=== PATIENT | male | born 1955 | race Caucasian/White ===

== ENCOUNTER 2019-03-27 15:09 | Emergency (ER) | payer OTHER ==
--- OUTSIDE RECORDS SUMMARY | 2019-03-27 15:11 | XMS REPORT | Encounter Summary ---
:1955 Author Care Team Providers Name Role Phone Julio César Frazier MD Primary Care Provider [phone] Reason for Visit Follow Up Visit Instructions 1. Chronic pain chronic pain: care instructions pain management referral 2. Lumbar radiculopathy gabapentin 800 mg tablet 3. Noncompliance with medication regimen 4. Noncompliance with therapeutic regimen Discussion Note: None recorded. Plan of Care Reminders Provider Appointments Return to on or around Julio César Ricks Office 01/27/2019 MD Freddie Lab None recorded. Referral Pain 01/27/2019 Hans Medeiros Management Referral Procedures None recorded. Surgeries None recorded. Imaging None recorded. Medications Name Start Date acetaminophen 300 mg-codeine 60 mg tablet Take 1 tablet twice a day by oral route as needed for 30 days. gabapentin 800 mg tablet Take 1 tablet 3 times a day by oral route for 30 days. gentamicin 0.3 % eye drops meloxicam 15 mg tablet Take 1 tablet every day by oral route for 30 days. nifedipine ER 60 mg tablet,extended release Take 1 tablet every day by oral route as directed. Proventil HFA 90 mcg/actuation aerosol inhaler Inhale 2 puffs by inhalation route as needed for 16 days. Medications Administered None recorded. Vitals Height Weight BMI Blood Pressure 62 in 127 lbs 16 oz 23.4 kg/m2 175/104 mm[Hg] Results Lab Results None recorded. Allergies Code Code System Name Reaction Severity Status Onset NKDA Problems No Known Problems Procedures Date Name Performed by Operation on Hip Joint Information not available Appendectomy Information not available Vaccine List None recorded. Social History Tobacco Smoking Status Heavy Tobacco Smoker (1 PPD) Past Encounters 01/27/2019 Chronic Pain; Lumbar Radiculopathy; Noncompliance with Medication Regimen; Noncompliance with Therapeutic Regimen Julio César Frazier MD: [address] [place] [address] [address], [place] [address], Ph. History of Present Illness Note: Patient here for follow-up on chronic pain. He states he needs refills on his Tylenol No. 4. He had called back in June to get refills on Tylenol No. 4. He was referred to pain management in May and he never went. He was prescribed meloxicam and trazodone and he never took the medications. He states that he did not want to take the medications. He never followed up as scheduled. He was asked to get x-rays of his back and lab work and he never got it done. He continues to smoke. Despite my best efforts the patient has not been wanting to quit. The patient states that he has had chronic back pain for over 20 years and wants to have his Tylenol No. 4 refilled. I told him that I am not a chronic pain management doctor and that he has to see pain management and that I will not be refilling his Tylenol No. 4 anymore. Review of Systems Comprehensive Adult Problem ROS Reported By: Patient Constitutional: Constitutional: good appetite, no fever, happy/content, normal activity level Eyes: Eyes: no eye pain, no blurry vision, no eye redness, no eye itchiness ENMT: ENMT: no ear pain, no ear discharge, no hearing loss, no mouth lesions Cardiovascular: Cardiovascular: no chest pain, normal heart rate Respiratory: Respiratory: no chest tightness, no pain with respiration, normal respiration, cough, wheezing Gastrointestinal: GI: no difficulty swallowing, no abdominal pain, no nausea, no vomiting, no diarrhea, no constipation, no blood in stools Genitourinary: : no discharge, no blood in urine, no pain with urination, no increase in frequency of urination, no voiding urgency, no testicular pain Musculoskeletal: Musculoskeletal: no soft tissue swelling, no joint swelling, no myalgia, limited motion Skin: Skin: no pain, no itchiness, no flaking, no skin lesions Neurological symptoms: Neuro: no numbness, no weakness, no tingling, no burning, no shooting pain, no headache, no loss of consciousness Psychiatric: Psych: no depression, no anxiety, no insomnia Endocrine: Endocrine: normal drinking, no temperature intolerance Allergic/Immunologic: Allergy/Immunologic: no sneezing, no runny nose Physical Exam General Adult Exam - Male Reported By: Patient Constitutional: General Appearance: healthy-appearing, well-nourished, well-developed. Level of Distress: NAD. Ambulation: limited ambulation Psychiatric: Insight: good judgement. Mental Status: active and alert, normal mood, normal affect. Orientation: to time, to place, to person Head: Head: normocephalic, atraumatic Eyes: Pupils: PERRLA. EOM: EOMI. Sclerae: non-icteric ENMT: Oropharynx: moist mucous membranes Neck: Neck: supple, trachea midline, FROM. Thyroid: no enlargement, non-tender, no nodules Lungs: Percussion: no dullness, flatness, or hyperresonance. Auscultation: breath sounds normal, good air movement Cardiovascular: Heart Auscultation: RRR, normal S1, normal S2, no murmurs, no rubs, no gallops. Neck vessels: no carotid bruits. Pulses including femoral / pedal: normal throughout Abdomen: Inspection and Palpation: soft, non-distended, no tenderness, no guarding Musculoskeletal:: Motor Strength and Tone: normal, normal tone. Joints, Bones , and Muscles: normal movement of all extremities. Extremities: no cyanosis, no edema, no varicosities Neurologic: Gait and Station: normal gait, normal station. Cranial Nerves: grossly intact. Sensation: grossly intact. Reflexes: DTRs 2+ bilaterally throughout Skin: Inspection and palpation: no rash, no lesions Back: Thoracolumbar Appearance: normal curvature
--- OUTSIDE RECORDS SUMMARY | 2019-03-27 15:11 | XMS REPORT | Encounter Summary ---
:1955 Author Care Team Providers Name Role Phone Julio César Frazier MD Primary Care Provider [phone] Reason for Visit new patient Instructions 1. Chronic low back pain pain management referral Mobic 15 mg tablet Tylenol-Codeine #4 300 mg-60 mg tablet XR, lumbar spine 2. Lumbar radiculopathy gabapentin 800 mg tablet 3. Essential hypertension CMP, serum or plasma CBC w/ auto diff TSH, serum or plasma lipid panel, serum 4. Chronic obstructive lung disease 5. Tobacco dependence syndrome deciding about using medicines to quit smoking stopping smoking: care instructions Discussion Note: None recorded. Plan of Care Reminders Provider Appointments Follow up Julio César Ricks 06/16/2018 MD Freddie 10:30AM Lab CMP, Serum or [facility] Plasma 06/02/2018 [facility] (Lab) CBC W/ Auto [facility] Diff 06/02/2018 [facility] (Lab) TSH, Serum or [facility] Plasma 06/02/2018 [facility] (Lab) Lipid Panel, [facility] Serum 06/02/2018 [facility] (Lab) Referral Pain Hans Medeiros MD Management Referral 06/02/2018 Procedures None recorded. Surgeries None recorded. Imaging XR, Lumbar [facility] Spine 06/02/2018 [facility] Medications Name Start Date gabapentin 800 mg tablet Take 1 tablet 3 times a day by oral route for 30 days. Mobic 15 mg tablet Take 1 tablet every day by oral route for 30 days. nifedipine ER 60 mg tablet,extended release Proventil HFA 90 mcg/actuation aerosol inhaler trazodone 50 mg tablet Tylenol-Codeine #4 300 mg-60 mg tablet Take 1 tablet twice a day by oral route as needed for 30 days. Medications Administered None recorded. Vitals Height Weight BMI Blood Pressure 62 in 139 lbs 9 oz 25.5 kg/m2 188/104 mm[Hg] Lab Results None recorded. Allergies Code Code System Name Reaction Severity Status Onset NKDA Problems None recorded. Procedures Date Name Performed by Operation on Hip Joint Information not available Appendectomy Information not available 06/02/2018 XR, Lumbar Spine [facility] [address] [place] [id number] ([address]) Vaccine List None recorded. Social History Smoking Status Current Every Day Smoker Past Encounters 06/02/2018 Chronic Low Back Pain; Lumbar Radiculopathy; Essential Hypertension; Chronic Obstructive Lung Disease; Tobacco Dependence Syndrome Julio César Frazier MD: [address] [place] [address], [address], [place] [address], Ph. History of Present Illness Back Pain Reported By: Patient HPI: Location: pain radiating to the buttocks, pain radiating to the legs, pain radiating to the foot, pain radiating to the ankle; Left sided pain, mid lower back. Quality: sharp. Severity: severe (8-10), interference with sleep, interference with work. Duration: chronic; Started to have back pain aproximately 3 years ago. 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 He is disabled from back problems. Has never seen pain managment. Onset/Timing: recurrent episode. Context: overuse, prior back problems. Alleviating Factors: rest, relieved by changing position. Aggravating Factors: movement/positioning, twisting, flexing back, extending back. Associated Symptoms: no fever, no incontinence Notes: pain worse with prolonged standing or sitting. Note: Hypertension: Patient has a history of hypertension and he has not had a follow-up in a while. He is due for labs. Tries to limits all intake. Denies any chest pain. No paroxysmal dyspnea or orthopnea. No anginal symptoms.

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 Denies syncope hemoptysis or abnormal weight loss. He is not on bronchodilator therapy at this time. He has never had oxygen evaluation. Denies a history of sleep apnea. He is not sure if he is up-to-date on his pneumonia shot. Offered a flu shot today and he refused.

Tobacco dependence syndrome: Patient has been smoking all his life. We discussed the importance of tobacco cessation to decrease the chances of him having cardiovascular disease. He states that at this time he is not interested in quitting.
Review of Systems Comprehensive Adult Problem ROS [...]
[2019-03-27] MEDS ORDERED: LIDOCAINE 1% MPF 30 ML VIAL ONE (16:45)
[2019-03-27] MEDS ORDERED: HYDROCODONE/APAP 10/325 TAB ONE (16:45)
--- NOTE | 2019-03-27 17:04 | ER ---
Nurse's Notes [facility] Name: Regino Hartman Age: 64 yrs Sex: Male : 1955 Arrival Date: 03/27/2019 Time: 15:11 Bed 13 Private MD: Diagnosis: Cutaneous abscess of right upper limb;Cutaneous abscess of right lower limb;Cellulitis of left lower limb Presentation: 03/27 15:11 Presenting complaint: Patient states: abscess on right elbow and bilateral knees x 4 sv days. Transition of care: patient was not received from another setting of care. Onset of symptoms was March 23, 2019. Risk Assessment: Do you want to hurt yourself or someone else? Patient reports no desire to harm self or others. Care prior to arrival: None. 15:11 Method Of Arrival: Ambulatory sv 15:11 Acuity: RODERICK 3 sv 15:16 Initial Sepsis Screen: Does the patient meet any 2 criteria? HR > 90 bpm. No. Patient's sv initial sepsis screen is negative. Does the patient have a suspected source of infection? Yes: Skin breakdown/wound. Historical: - Allergies: 15:14 No Known Allergies; sv - PMHx: 15:14 Hypertension; sv - PSHx: 15:14 Appendectomy; left femur; sv - Immunization history:: Flu vaccine is not up to date. - Social history:: Smoking status: Patient uses tobacco products, smokes one pack cigarettes per day. - Ebola Screening: : No symptoms or risks identified at this time. Screenin:15 Abuse screen: Denies threats or abuse. Nutritional screening: No deficits noted. rb1 Tuberculosis screening: No symptoms or risk factors identified. Fall Risk None identified. Assessment: 16:15 General: Appears in no apparent distress. Neuro: Level of Consciousness is awake, rb1 alert, obeys commands, Oriented to person, place, time, situation. Cardiovascular: Capillary refill < 3 seconds is brisk in bilateral fingers. Respiratory: Airway is patent Respiratory effort is even, unlabored, Respiratory pattern is regular, symmetrical. GI: No signs and/or symptoms were reported involving the gastrointestinal system. : No signs and/or symptoms were reported regarding the genitourinary system. Musculoskeletal: Range of motion: intact in all extremities. 16:15 Pain: Complains of pain in left leg and right arm Pain currently is 8 out of 10 on a rb1 pain scale. 17:20 Reassessment: Applied non-adherent gauze, 4 x 4 's gauze, and kerlix to the left elbow rb1 and the right lower thigh. Pt. tolerated well. 17:30 Reassessment: Patient appears in no apparent distress at this time. Patient and/or rb1 family updated on plan of care and expected duration. Pain level reassessed. Patient is alert/active/playful, equal unlabored respirations, skin warm/dry/pink. Vital Signs: 15:14 BP 160 / 95; Pulse 100; Resp 20; Pulse Ox 100% ; Weight 63.5 kg; Height 5 ft. 2 in. sv (157.48 cm); Pain 9/10; 16:10 BP 160 / 94; Pulse 95; Resp 19; Pulse Ox 99% on R/A; Pain 8/10; rb1 17:10 BP 158 / 91; Pulse 93; Resp 19; Pulse Ox 99% on R/A; Pain 5/10; rb1 15:14 Body Mass Index 25.61 (63.50 kg, 157.48 cm) sv ED Course: 15:11 Patient arrived in ED. sv 15:11 Arm band placed on. sv 15:13 Triage completed. sv 16:07 Jason Khan PA is PHCP. jr8 16:07 Pierre Bustamante MD is Attending Physician. jr8 16:15 Patient has correct armband on for positive identification. Bed in low position. Call rb1 light in reach. Side rails up X 1. Pulse ox on. NIBP on. 16:45 Beatrice Shen, NATANAEL is Primary Nurse. rb1 17:02 Jose Bobby MD is Referral Physician. jr8 17:34 No provider procedures requiring assistance completed. Patient did not have IV access rb1 during this emergency room visit. 17:36 Primary Nurse role handed off by Beatrice Shen, NATANAEL rb1 17:37 Beatrice Shen RN is Primary Nurse. rb1 Administered Medications: 16:46 Drug: [place] 10 mg-325 mg 1 tabs Route: PO; rb1 17:30 Follow up: Response: No adverse reaction; Pain is decreased rb1 16:47 Drug: Lidocaine (1 %) 1 vials Volume: 20 ml; Route: Infiltration; rb1 17:15 Drug: Clindamycin 600 mg {Note: and right gluteus.} Route: IM; Site: left gluteus; rb1 17:30 Follow up: Response: No adverse reaction rb1 17:15 Drug: Bactrim (160 mg-800 mg (DS) 1 tablet Route: PO; rb1 17:30 Follow up: Response: No adverse reaction rb1 Outcome: 17:03 Discharge ordered by . quin 17:34 Patient left the ED. iw 17:34 Discharged to home ambulatory, with family. rb1 17:34 Condition: stable 17:34 Discharge instructions given to patient, Instructed on discharge instructions, follow up and referral plans. medication usage, Demonstrated understanding of instructions, follow-up care, medications, Prescriptions given X 4. 17:38 Patient left the ED. rb1 Signatures: Dorota Grya RN RN Soledad Moscoso RN RN iw Jason Khan PA PA jr8 Beatrice Shen RN RN rb1 Corrections: (The following items were deleted from the chart) 17:28 17:15 Clindamycin 600 mg IM in left deltoid rb1 rb1
--- NOTE | 2019-03-27 17:04 | EDPHYS ---
Physician Documentation [facility] Name: Regino Hartman Age: 64 yrs Sex: Male : 1955 Arrival Date: 03/27/2019 Time: 15:11 Bed 13 Private MD: ED Physician Pierre Bustamante HPI: 03/27 16:16 This 64 yrs old Male presents to ER via Ambulatory with complaints of abscess.jr8 16:16 the patient presents with a swollen area of the right arm, right leg and left leg. jr8 Description: The affected area is small, localized, well demarcated, erythematous. Onset: The symptoms/episode began/occurred gradually, 4 day(s) ago. Possible cause(s): unknown. Associated signs and symptoms: The patient has no apparent associated signs or symptoms. Modifying factors: the symptoms are alleviated by nothing, the symptoms are aggravated by movement, walking, pressure, squeezing the lesion and expressing the contents, touching. Severity of symptoms: At their worst the symptoms were mild, in the emergency department the symptoms are unchanged. The patient has not experienced similar symptoms in the past. The patient has not recently seen a physician. Stated that over the past 4 days have had three swollen areas come up. Two of the three draining. Pain to areas that will not go away . Historical: - Allergies: 15:14 No Known Allergies; sv - PMHx: 15:14 Hypertension; sv - PSHx: 15:14 Appendectomy; left femur; sv - Immunization history:: Flu vaccine is not up to date. - Social history:: Smoking status: Patient uses tobacco products, smokes one pack cigarettes per day. - Ebola Screening: : No symptoms or risks identified at this time. ROS: 16:16 Constitutional: Negative for fever, chills, and weight loss. jr8 16:16 Skin: Positive for abscess, swelling, of the right arm, right leg and left leg. 16:16 All other systems are negative. Exam: 16:16 Eyes: Pupils equal round and reactive to light, extra-ocular motions intact. Lids and jr8 lashes normal. Conjunctiva and sclera are non-icteric and not injected. Cornea within normal limits. Periorbital areas with no swelling, redness, or edema. ENT: Nares patent. No nasal discharge, no septal abnormalities noted. Tympanic membranes are normal and external auditory canals are clear. Oropharynx with no redness, swelling, or masses, exudates, or evidence of obstruction, uvula midline. Mucous membranes moist. Neck: Trachea midline, no thyromegaly or masses palpated, and no cervical lymphadenopathy. Supple, full range of motion without nuchal rigidity, or vertebral point tenderness. No Meningismus. Cardiovascular: Regular rate and rhythm with a normal S1 and S2. No gallops, murmurs, or rubs. Normal PMI, no JVD. No pulse deficits. Respiratory: Lungs have equal breath sounds bilaterally, clear to auscultation and percussion. No rales, rhonchi or wheezes noted. No increased work of breathing, no retractions or nasal flaring. Abdomen/GI: Soft, non-tender, with normal bowel sounds. No distension or tympany. No guarding or rebound. No evidence of tenderness throughout. Back: No spinal tenderness. No costovertebral tenderness. Full range of motion. MS/ Extremity: Pulses equal, no cyanosis. Neurovascular intact. Full, normal range of motion. Neuro: Awake and alert, GCS 15, oriented to person, place, time, and situation. Cranial nerves II-XII grossly intact. Motor strength 5/5 in all extremities. Sensory grossly intact. Cerebellar exam normal. Normal gait. 16:16 Skin: Patient has 2.5 cm raised red fluctuant region to right forearm that is not draining. Patient has another 1.5 cm raised draining area to distal femoral region just superior to the knee. Has another 1 cm infrapatellar area of redness without fluctuance. No surrounding cellulitis to any of the lesions . Vital Signs: 15:14 BP 160 / 95; Pulse 100; Resp 20; Pulse Ox 100% ; Weight 63.5 kg; Height 5 ft. 2 in. sv (157.48 cm); Pain 9/10; 16:10 BP 160 / 94; Pulse 95; Resp 19; Pulse Ox 99% on R/A; Pain 8/10; rb1 17:10 BP 158 / 91; Pulse 93; Resp 19; Pulse Ox 99% on R/A; Pain 5/10; rb1 15:14 Body Mass Index 25.61 (63.50 kg, 157.48 cm) Procedures: 17:01 I \T\ D: Incision and drainage was performed for an abscess of the right right leg jr8 Prepped with Chlorhexidine . Anesthetized with 2 ml's 1% Lidocaine. Incised with #11 blade. Drained small amount purulent fluid. serosanguinous fluid. bloody fluid. Loculations removed. Abscess cavity explored. Packed with iodoform gauze, Dressing: sterile 4x4 gauze, the patient tolerated the procedure well. 17:01 I \T\ D: Incision and drainage was performed for an abscess of the right right arm jr8 Prepped with Chlorhexidine . Anesthetized with 2 ml's 1% Lidocaine. Incised with #11 blade. Drained small amount purulent fluid. serosanguinous fluid. bloody fluid. Loculations removed. Abscess cavity explored. Packed with iodoform gauze, Dressing: sterile 4x4 gauze, the patient tolerated the procedure well. MDM: 16:07 Patient medically screened. jr8 17:01 Data reviewed: vital signs, nurses notes, and as a result, I will discharge patient. jr8 Data interpreted: Pulse oximetry: on room air is 100 %. Interpretation: normal. Counseling: I had a detailed discussion with the patient and/or guardian regarding: the historical points, exam findings, and any diagnostic results supporting the discharge/admit diagnosis, the need for outpatient follow up, a family practitioner, to return to the emergency department if symptoms worsen or persist or if there are any questions or concerns that arise at home. 03/27 16:13 Order name: I\T\D Setup; Complete Time: 16:47 jr8 Administered Medications: 16:46 Drug: [place] 10 mg-325 mg 1 tabs Route: PO; rb1 17:30 Follow up: Response: No adverse reaction; Pain is decreased rb1 16:47 Drug: Lidocaine (1 %) 1 vials Volume: 20 ml; Route: Infiltration; rb1 17:15 Drug: Clindamycin 600 mg {Note: and right gluteus.} Route: IM; Site: left gluteus; rb1 17:30 Follow up: Response: No adverse reaction rb1 17:15 Drug: Bactrim (160 mg-800 mg (DS) 1 tablet Route: PO; rb1 17:30 Follow up: Response: No adverse reaction rb1 Disposition: 03/27/19 17:03 Discharged to Home. Impression: Cutaneous abscess of right upper limb, Cutaneous abscess of right lower limb, Cellulitis of left lower limb. - Condition is Stable. - Discharge Instructions: Skin Abscess, Cellulitis, Adult, Incision and Drainage. - Prescriptions for Clindamycin HCl 300 mg Oral Capsule - take 1 capsule by ORAL route every 6 hours for 10 days; 40 capsule. Ibuprofen 800 mg Oral Tablet - take 1 tablet by ORAL route every 12 hours As needed take with food; 20 tablet. Tylenol- Codeine #3 300-30 mg Oral Tablet - take 2 tablets by ORAL route every 6 hours As needed; 20 tablet. Bactrim DS 800- 160 mg Oral Tablet - take 1 tablet by ORAL route every 12 hours for 10 days; 20 tablet. - Medication Reconciliation Form, Thank You Letter, Antibiotic Education, Prescription Opioid Use, Work release form form. - Follow up: Jose Bobby MD; When: 2 - 3 days; Reason: Wound Recheck, Recheck today's complaints, Continuance of care, Re-evaluation by your physician. - Problem is new. - Symptoms have improved. Addendum: 03/29/2019 10:20 Co-signature as Attending Physician, Pierre Bustamante MD I agree with the assessment and c rush plan of care. Signatures: Dorota Gray, RN RN Pierre Greene MD MD cha Williams, Irene, RN RN Jason Joe PA PA jr8 Beatrice Sehn, RN RN rb1 Corrections: (The following items were deleted from the chart) 03/27 16:17 16:16 This 64 yrs old Male presents to ER via Ambulatory with complaints of jr8 Leg Pain. jr8 17:34 17:03 03/27/2019 17:03 Discharged to Home. Impression: Cutaneous abscess of right upper iw limb; Cutaneous abscess of right lower limb; Cellulitis of left lower limb. Condition is Stable. Forms are Medication Reconciliation Form, Thank You Letter, Antibiotic Education, Prescription Opioid Use. Follow up: Jose Bobby; When: 2 - 3 days; Reason: Wound Recheck, Recheck today's complaints, Continuance of care, Re-evaluation by your physician. Problem is new. Symptoms have improved. jr8 17:38 17:34 03/27/2019 17:03 Discharged to Home. Impression: Cutaneous abscess of right upper rb1 limb; Cutaneous abscess of right lower limb; Cellulitis of left lower limb. Condition is Stable. Discharge Instructions: Skin Abscess, Cellulitis, Adult, Incision and Drainage. Prescriptions for Clindamycin HCl 300 mg Oral Capsule - take 1 capsule by ORAL route every 6 hours for 10 days; 40 capsule, Ibuprofen 800 mg Oral Tablet - take 1 tablet by ORAL route every 12 hours As needed take with food; 20 tablet, Tylenol-Codeine #3 300-30 mg Oral Tablet - take 2 tablets by ORAL route every 6 hours As needed; 20 tablet, Bactrim DS 800-160 mg Oral Tablet - take 1 tablet by ORAL route every 12 hours for 10 days; 20 tablet. and Forms are Medication Reconciliation Form, Thank You Letter, Antibiotic Education, Prescription Opioid Use. Follow up: Jose Bobby; When: 2 - 3 days; Reason: Wound Recheck, Recheck today's complaints, Continuance of care, Re-evaluation by your physician. Problem is new. Symptoms have improved. iw
[2019-03-27] MEDS ORDERED: SMZ./TMP. 800/160 MG TABLET ONE (17:14)
[2019-03-27] MEDS ORDERED: CLINDAMYCIN IV 150 MG/ML (4 mL) VIAL ONE (17:15)
[2019-03-27 18:37] VITALS: BP 160/95; O2SAT 100
== END 2019-03-27 17:38 | disposition home or self-care (01) ==
LOC: ER 15:09
PROC: 0J9G0ZZ Drainage of Right Lower Arm Subcutaneous Tissue and Fascia, Open Approach (ICD-10-PCS; principal; 2019-03-27)
PROC: 0J9N0ZZ Drainage of Right Lower Leg Subcutaneous Tissue and Fascia, Open Approach (ICD-10-PCS; 2019-03-27)
DX: L02.415 Cutaneous abscess of right lower limb (principal); L02.413 Cutaneous abscess of right upper limb; L02.416 Cutaneous abscess of left lower limb
CPT/HCPCS: 96372; 99283; 10060; S0077